=== PATIENT | female | born 1985 | race Caucasian/White ===

== ENCOUNTER 2021-11-24 09:31 | Emergency (ER) | payer OTHER, SELFPAY ==
[2021-11-24 10:05] VITALS: BP 124/76; PULSE 100; RESP 18; TEMP 37.1; O2SAT 100
--- NOTE | 2021-11-24 11:05 | ED.GENADULT ---
HPI - General Adult General Chief complaint: Ear Stated complaint: left ear bleeding Time Seen by Provider: 11/24/21 10:15 Source: patient Mode of arrival: ambulatory Limitations: no limitations History of Present Illness HPI narrative: Patient is a 36 yo with CC of left ear bleeding and decreased hearing on that side after accidently pushing a q-tip too far in her ear. Patient reports she has had a cold for the past week that has been accompanied by ear congestion. She reports she has been fervently cleaning her ear without resolve. She states she put a qtip in her ear and forgot, then struck the qtip last night causing it to rupture her eardrum. She reports there was clear fluid and blood. She denies fever, chills, or any other concerning symptoms. Related Data Allergies Allergy/AdvReac Type Severity Reaction Status Date / Time No Known Allergies Allergy Verified 11/24/21 10:09 Review of Systems Review of Systems: CONSTITUTIONAL: Denies fever, chills, or sweats. EYES: Denies visual changes, redness, or discharge. ENT: Reports rhinorrhea and otalgia denies rhinorrhea, congestion, sore throat CARDIOVASCULAR: Denies chest pain, palpitations, or edema. RESPIRATORY: Denies cough or dyspnea. GASTROINTESTINAL: Denies abdominal pain, nausea, vomiting, or diarrhea. GENITOURINARY: Denies dysuria or hematuria. SKIN: Denies rash or itching. MUSCULOSKELETAL: Denies back pain, joint pain, or myalgia. NEUROLOGIC: Denies headache, numbness, dizziness, or weakness. PSYCHIATRIC: Denies anxiety or depression. Exam Narrative: GENERAL: Well-appearing, well-nourished, and in no acute distress. HEAD: Normocephalic, atraumatic. EYES: PERRLA and EOMI. ENT: Nares clear, no rhinorrhea or epistaxis. Ruptured left TM with dried blood and clear fluid in the canal. Ear drum injected. NECK: Supple.ROM intact SKIN: Warm, dry, no rash. NEURO: No focal deficits. Alert and oriented x3. Gait steady. PSYCH: Normal mood and affect. Course Vital Signs Vital signs: Vital Signs Temperature 98.8 F 11/24/21 10:05 Pulse Rate 100 11/24/21 10:05 Respiratory Rate 18 11/24/21 10:05 Blood Pressure 124/76 11/24/21 10:05 Pulse Oximetry 100 11/24/21 10:05 Temperature 98.8 F 11/24/21 10:05 Pulse Rate 100 11/24/21 10:05 Respiratory Rate 18 11/24/21 10:05 Blood Pressure 124/76 11/24/21 10:05 Pulse Oximetry 100 11/24/21 10:05 Medical Decision Making MDM Narrative Medical decision making narrative: Discussed plan of care and follow up with ENT needed. Discussed not putting anything other than the rx drops in her ear and to gently wipe away drainage with cloth but to not stick anything into her ears. Vital Signs Vital Signs: Vital Signs Temperature 98.8 F 11/24/21 10:05 Pulse Rate 100 11/24/21 10:05 Respiratory Rate 18 11/24/21 10:05 Blood Pressure 124/76 11/24/21 10:05 Pulse Oximetry 100 11/24/21 10:05 Temperature 98.8 F 11/24/21 10:05 Pulse Rate 100 11/24/21 10:05 Respiratory Rate 18 11/24/21 10:05 Blood Pressure 124/76 11/24/21 10:05 Pulse Oximetry 100 11/24/21 10:05 Discharge Plan Discharge Clinical Impression: Rupture of left tympanic membrane Otitis media Qualifiers: Otitis media type: unspecified Chronicity: acute Qualified Code(s): H66.90 - Otitis media, unspecified, unspecified ear Patient Disposition: Home, Self-Care Condition: Improved Instructions: Antibiotic Form, Ruptured Eardrum (ED), Ear Infection (ED) Additional Instructions: Take over the counter antihistamine and decongestant such as zyrtec and sudafed. Use flonase for nasal congestion and ear fluid. Tylenol or motrin for discomfort over the counter, if tolerated. Take augmentin as instructed. Use oflaxacin drops as directed. Follow-up with the ear nose throat specialist for further evaluation. Return to the ER if you have any emergent symptoms. Prescriptions: New amoxicillin-pot clavulanate 875
== END 2021-11-24 11:03 | disposition home or self-care (01) ==
PROVIDERS: Emergency Provider Emergency Medicine
DX: S09.22XA Traumatic rupture of left ear drum, initial encounter (principal); H66.92 Otitis media, unspecified, left ear; W22.8XXA Striking against or struck by other objects, initial encounter
CPT/HCPCS: 99283

== ENCOUNTER 2022-11-07 18:42 | Emergency (ER) | payer OTHER, SELFPAY ==
--- NOTE | 2022-11-07 18:50 | ED.FEMALEGU ---
HPI - Female Genitourinary General Chief complaint: Unspecified Stated complaint: itchiness/swelling/discharge Source: patient Mode of arrival: ambulatory Limitations: no limitations History of Present Illness HPI Narrative: 37-year-old presents to the ER with -- genital itching -- Vaginal discharge -- dysuria this started after she completed clindamycin for a dental infection. MD elicited complaint: dysuria, vaginal discharge and genital itching Pertinent past history: other ( history of yeast infection/ trichmoniasis when she was 21 years of age) Onset (ago): day(s) Location of symptoms: external genitalia and perineum Severity: moderate Vaginal discharge: white Vaginal bleeding: none Urinary symptoms: Dysuria Exacerbating factors: none Relieving factors: none Associated symptoms: denies other symptoms Treatment prior to arrival: none Sexual activity: No ( patient is lesbian and has not had any relationships with men for many years.) Patient : No Date of Last Menstrual Period: 10/31/22 Related Data : 0 Para: 0 Total number of abortions (spontaneous and elective): 0 Allergies Allergy/AdvReac Type Severity Reaction Status Date / Time No Known Allergies Allergy Verified 11/24/21 10:09 Review of Systems Review of Systems: All systems reviewed & are unremarkable except as noted in HPI and below Constitutional: Constitutional: Reports as per HPI and Reports no additional constitutional complaints Eyes: Eyes: Reports as per HPI and Reports no additional eye complaints ENT: Reports system reviewed and no additional complaints, except as documented and Reports as per HPI Cardiovascular: Cardiovascular: Reports as per HPI and Reports no additional cardiovascular complaints Respiratory: Respiratory: Reports as per HPI and Reports no additional respiratory complaints Gastrointestinal: Gastrointestinal: Reports as per HPI and Reports no additional gastrointestinal complaints Genitourinary: Genitourinary: Reports dysuria and Reports vaginal discharge Comments: Copious yellow white vaginal discharge Musculoskeletal: Musculoskeletal: Reports no additional musculoskeletal complaints and Reports as per HPI Integumentary/Breasts: Skin/Breast: Reports system reviewed and no additional complaints, except as docu and Reports as per HPI Neurologic: Reports system reviewed and no additional complaints, except as documented and Reports as per HPI Psychiatric: Psychiatric: Reports no additional psychiatric complaints and Reports as per HPI Endocrine: Endocrine: Reports no additional endocrine complaints and Reports as per HPI Hematologic/Lymphatic: Hematologic/Lymphatic: Reports no additional hematologic/lymphatic complaints and Reports as per HPI Allergic/Immunologic: Allergic/Immunologic: Reports no additional allergic/immunologic complaints and Reports as per [facility] Past Medical History Medical History (Updated 11/07/22 @ 20:36 by Keron Spain MD) Dental caries Trichomoniasis Social History Social History (Updated 11/07/22 @ 19:27 by Keron Spain MD) Social History: smoker. History of marijuana use. Exam Const: General: no acute distress Nutritional Appearance: well nourished Orientation/consciousness: patient oriented x3 Limitations: no limitations HENMT: Head: normal to inspection Ears: external ears normal Face/Nose/Sinus: Normal external nose present Face and sinus: normal facial exam Mouth: Yes Normal oral and palatal mucosa present Throat: posterior oropharynx normal Eyes: Conjunctivae: conjunctivae normal Pupils: Equal, round and reactive pupils present EOM: EOMs intact bilaterally Direct Ophthalmoscopy: no photophobia Neck: Neck: normal visual inspection, no lymphadenopathy and no meningeal signs Chest: Chest palpation & inspection: normal inspection of the chest Resp: Effort & Inspection: normal respiratory effort Auscultation: clear to auscultation bilat
[2022-11-07 18:51] VITALS: BP 145/100; PULSE 88; RESP 16; TEMP 36.6; O2SAT 100
--- NOTE | 2022-11-07 19:23 | PC.NURSE ---
pelvic exam & and swabs collected per MD, nurse & tech at side of patient
[2022-11-07 19:35] LABS: Basophils Absolute Auto 0.03 K/mm3 (0.00-0.10); Basophils Percent Auto 0.2 % (0.0-1.0); Eosinophils Absolute Auto 0.08 K/mm3 (0.02-0.50); Eosinophils Percent Auto 0.5 % (1.0-6.0); Hematocrit 42.3 % (35.0-49.0); Hemoglobin 14.4 g/dL (12.0-15.0); Immature Granulocyte Absolute 0.07 K/mm3 (0.00-0.00); Immature Granulocyte Percent A 0.5 % (0.0-0.0); Lymphocytes Absolute Auto 2.17 K/mm3 (1.10-4.50); Mean Corpuscular Hemoglobin 31.2 pg (27.0-31.0); Mean Corpuscular Volume 91.8 fL (78.0-102.0); Mean Platelet Volume 9.2 fl (9.2-11.8); Monocytes Absolute Auto 0.77 K/mm3 (0.10-0.90); Neutrophils Absolute Auto 12.4 K/mm3 (1.7-7.2); Neutrophils Percent Auto 79.8 % (50.0-70.0); Platelet Count Result 295 K/mm3 (150-420); Red Blood Count 4.61 M/mm3 (4.20-5.40); Red Cell Distribution Width 12.8 % (11.6-14.4); White Blood Count 15.6 K/mm3 (4.8-10.8)
[2022-11-07 19:37] LABS: Add Urine Microscopic? YES; Appearance Urine Clear (Clear); Bilirubin Urine Negative (Negative); Blood Urine 1+ (Negative); Color Urine Yellow (Yellow); Glucose Urine UA Negative (Negative); Ketones Urine Negative (Negative); Leukocyte Esterase Ur 3+ LEU/UL (Negative); Nitrate Urine Negative (Negative); Protein Urine Trace (Negative); Specific Grav Ur 1.025 (1.010-1.020); Urobilinogen Urine 0.2 mg/dL (0.2-1.0)
[2022-11-07 19:46] LABS: Bacteria Urine 1+ /hpf; RBC Urine 21-50 /hpf (0-2); Squamous Epithelial Cell Urine Few /hpf (Few); WBC Urine >75 /hpf (0-3)
[2022-11-07 19:52] LABS: Trichomonas Negative (Negative); Trichomonas Source Vaginal (Female)
[2022-11-07 19:53] LABS: KOH Fungus None Seen (None Seen); Wet Prep Fungus (KOH) Source Vaginal (Negative)
[2022-11-07 20:00] VITALS: BP 150/90; PULSE 80; RESP 20; O2SAT 96
[2022-11-07 20:03] LABS: Lactic Acid Reflex 1.8 mmol/L (0.4-2.0)
[2022-11-07 20:11] LABS: Alanine Aminotransferase 18 U/L (14-59); Albumin Level 3.5 g/dL (3.4-5.0); Alkaline Phosphatase 98 U/L (46-116); Anion Gap 4 mmol/L (8-16); Aspartate Amino Transferase 18 U/L (15-37); Bilirubin,Total 0.1 mg/dL (0.00-1.00); Blood Urea Nitrogen 14 mg/dL (7-18); Calcium 8.3 mg/dL (8.5-10.1); Carbon Dioxide 31 mmol/L (21-32); Chloride 100 mmol/L (98-108); Estimated CRCL calculation 66 ml/min; Estimated Glomerular Filt Rate > 60; Glucose 89 mg/dL (70-99); Osmolality Calculated 279 mOsm/kg (285-295); Sodium 135 mmol/L (136-145); Thyroid Stimulating Hormone 0.58 uIU/mL (0.36-3.74); Total Protein 7.4 g/dL (6.4-8.2)
[2022-11-07] MEDS: cefTRIAXone 1 GM VIAL 0.5 GM IM (20:41)
[2022-11-07] MEDS: AZITHROMYCIN 250 MG TABLET 1000 MG PO (20:41)
[2022-11-07 20:45] VITALS: BP 140/90; PULSE 78; RESP 18; TEMP 36.6; O2SAT 99
--- NOTE | 2022-11-11 13:58 | PC.NURSE ---
GENITAL CULTURE FINAL: NORMAL UROGENTIAL MESFIN PRESENT ISOLATE 1: HEAVY GROWTH OF GARDNERELLA VAGINALIS, NO SUSCEPTIBILITY TESTING DONE. PER SYLVIE HOFFMAN TO COVER AND RX WAS GIVEN UPON DC. NO FURTHER ACTION NEEDED AT THIS TIME.
--- NOTE | 2022-11-12 16:08 | PC.NURSE ---
trachomatis and gonorrhoeae urine results reviewed. neither detected. no change in plan of care
== END 2022-11-07 20:51 | disposition home or self-care (01) ==
PROVIDERS: Emergency Provider Internal Medicine Critical Care Medicine
DX: N76.0 Acute vaginitis (principal); N39.0 Urinary tract infection, site not specified
CPT/HCPCS: 36415; 80053; 81001; 83605; 84443; 85025; 87070; 87086; 87147; 87210; 87491; 87591; 96372; 99284; A9270; J0696